=== PATIENT | male | born 1990 | race Hispanic/Latino ===

== ENCOUNTER 2023-03-09 13:37 | Emergency (ER) | payer OTHER ==
[~2023-03-09] VITALS: Ht 185.4 cm; Wt 77.1 kg
[2023-03-09] MEDS ORDERED: IOPAMIDOL 370 MG/ML 100 ML INFUS..BTL INJ ONE (14:36)
[2023-03-09 15:55] VITALS: O2SAT 99
== END 2023-03-09 16:05 | disposition home or self-care (01) ==
LOC: FSED 13:42
DX: R10.31 Right lower quadrant pain (principal); K57.30 Diverticulosis of large intestine without perforation or abscess without bleeding; N28.9 Disorder of kidney and ureter, unspecified
CPT/HCPCS: 74177; 80053; 81003; 85025; 99283; Q9967